=== PATIENT | female | born 1950 | race Caucasian/White ===

== ENCOUNTER 2020-01-04 12:54 | Outpatient (RCR) | payer OTHER, SELFPAY ==
[2020-01-04 13:01] VITALS: BMI 53.8
[2020-01-04 13:02] VITALS: BMI 53.8
== END 2020-04-03 23:59 | disposition home or self-care (01) ==
LOC: ANHDMC 12:54
PROVIDERS: PCP Internal Medicine; Visit Provider Internal Medicine
DX: E11.65 Type 2 diabetes mellitus with hyperglycemia (principal); Z71.3 Dietary counseling and surveillance; Z79.4 Long term (current) use of insulin
CPT/HCPCS: 97802

== ENCOUNTER → 2020-01-31 10:21 | Outpatient (CLI) | payer OTHER, SELFPAY ==
--- NOTE | ~2020-01-31 | XR_ITS ---
XR shoulder LT min 2V 01/31/2020 10:52 Indication: Left shoulder pain Procedure: 4 views left shoulder Comparison: No prior studies for comparison. Findings: There are mild degenerative changes of the glenohumeral and acromioclavicular joints. No ac salas fracture or traumatic malalignment. No significant soft tissue abnormality. Impression: 1: Mild polyarticular osteoarthritis. Reviewed, dictated and finalized at location B. E EDGER Impression: 1: Mild polyarticular osteoarthritis.
== END ==
PROVIDERS: PCP Internal Medicine; Visit Provider Nurse Practitioner Family
DX: M19.012 Primary osteoarthritis, left shoulder (principal)
CPT/HCPCS: 73030

== ENCOUNTER 2020-03-11 08:25 | Outpatient (CLI) | payer OTHER, SELFPAY ==
[2020-03-11 08:40] LABS: Hematocrit 44.7 % (37.0-47.0); Hemoglobin 14.2 g/dL (12.0-15.0); Mean Corpuscular HGB Conc 31.8 g/dl (32-36); Platelet Count Result 211 k/mm3 (150-375); Red Blood Count 5.08 M/mm3 (4.2-5.4); Red Cell Distribution Width 13.8 % (11.5-14.5); White Blood Count 6.6 K/mm3 (4.5-10.0)
[2020-03-11 12:07] LABS: Iron 72 ug/dL (37-170)
[2020-03-11 12:08] LABS: Blood Urea Nitrogen 14 mg/dL (7-17); Calcium 8.6 mg/dL (8.4-10.2); Carbon Dioxide 30 mmol/L (22-30); Chloride 106 mmol/L (98-107); Estimated Glomerular Filt Rate > 60; Glucose 123 mg/dL (65-105); Potassium 4.5 mmol/L (3.4-5.0); Sodium 140 mmol/L (137-145)
[2020-03-11 12:17] LABS: Percent Iron Saturation 24 % (20-50)
[2020-03-11 13:02] LABS: Vitamin B12 > 1000.0 pg/mL (239-931)
== END 2020-03-11 08:26 | disposition home or self-care (01) ==
LOC: ANHLAB 08:28
PROVIDERS: PCP Internal Medicine; Visit Provider Internal Medicine Hematology & Oncology
DX: D50.9 Iron deficiency anemia, unspecified (principal)
CPT/HCPCS: 36415; 80048; 82607; 82728; 83540; 83550; 85027

== ENCOUNTER 2020-05-01 09:46 | Outpatient (CLI) | payer OTHER, SELFPAY ==
--- NOTE | ~2020-05-01 | DEXA_ITS ---
Bone Density Report Name: Leslie Duong Age: 69 Sex: Female Ethnicity: White Date of : 1950 Indication: postmenopausal; height loss; inflammatory bowel disease; hysterectomy; Referring Provider: Calvin, Monika Malone Study: Bone densitometry was performed. Exam Date: May 01, 2020 Accession number: [id number] Bone Density: Region BMD T-score Z-score Classification AP Spine (L1-L4) 1.244 1.8 3.7 Normal Femoral Neck (Left) 0.853 0.0 1.7 Normal Total Hip (Left) 1.024 0.7 2.1 Normal Total Hip Bilateral Avg 1.086 1.2 2.5 Normal Femoral Neck (Right) 0.972 1.1 2.8 Normal Total Hip (Right) 1.146 1.7 3.0 Normal World Health Organization criteria for BMD impression classify patients as: Normal (T-score at or above -1.0), Osteopenia (T-score between -1.0 and -2.5), or Osteoporosis (T-score at or below -2.5). 10-year Fracture Risk: FRAX not reported because: All T-scores for Spine Total, Hip Total, Femoral Neck at or above -1.0 Clinical Information Provided by Patient: Has used the following medications: Calcium Has the following medical conditions: Inflammatory bowel diseases, Hysterectomy Patient maximum height was 69 Menopause Age: 42 No regular weight bearing exercise Does not regularly consume dairy products Onset of menses at age 15 Number of children 2 Impression: The patient has normal bone mass. Discussion: BONE DENSITY IS ABOVE THE MINIMUM DESIRABLE LEVEL AT ALL SKELETAL SITES TESTED. This patient?s bone mineral density is above the minimum desirable level (T-score -1.0 or better) at all sites measured. The patient should follow a healthful lifestyle (good nutrition with adequate calcium and vitamin D, and appropriate weight-bearing exercise). Follow-Up: Consider repeating this study in 5 years or sooner if there is some new clinical indication. Reported by: CHADD on 05/01/2020 10:18:00 AM. Reviewed, dictated and finalized at location AC[facility] GARIBAY
== END 2020-05-01 09:47 | disposition home or self-care (01) ==
LOC: ANHIMG 09:48
PROVIDERS: PCP Internal Medicine; Visit Provider Nurse Practitioner Obstetrics & Gynecology
DX: M85.80 Other specified disorders of bone density and structure, unspecified site (principal); Z78.0 Asymptomatic menopausal state
CPT/HCPCS: 77080

== ENCOUNTER 2020-05-08 09:04 | Outpatient (CLI) | payer OTHER, SELFPAY ==
[2020-05-08 09:29] LABS: Basophils Absolute Auto 0.1 K/mm3 (0.0-0.1); Basophils Percent Auto 0.9 % (0.2-1.2); Eosinophils Absolute Auto 0.3 K/mm3 (0-0.3); Hematocrit 44.3 % (37.0-47.0); Immature Granulocyte Absolute 0.01 K/mm3 (0.00-0.031); Immature Granulocyte Percent A 0.1 % (0-0.5); Lymphocytes Absolute Auto 1.81 K/mm3 (0.9-3.2); Lymphocytes Percent Auto 26.7 % (18.3-44.2); Mean Corpuscular HGB Conc 31.6 g/dl (32-36); Mean Corpuscular Hemoglobin 27.2 pg (26-34); Mean Corpuscular Volume 86.2 fl (80-100); Mean Platelet Volume 9.2 fl (7.4-10.4); Monocytes Absolute Auto 0.7 K/mm3 (0.1-0.6); Monocytes Percent Auto 9.9 % (2.6-8.5); Neutrophils Absolute Auto 3.9 K/mm3 (1.3-6.7); Neutrophils Percent Auto 57.4 % (45.5-73.1); Platelet Count Result 232 k/mm3 (150-375); Red Blood Count 5.14 M/mm3 (4.2-5.4); Red Cell Distribution Width 14.3 % (11.5-14.5); White Blood Count 6.8 K/mm3 (4.5-10.0)
[2020-05-08 09:40] LABS: Hemoglobin A1C 6.7 % (<5.7)
[2020-05-08 09:41] LABS: Alanine Aminotransferase 18 U/L (4-35); Albumin Level 4.2 g/dL (3.5-5.1); Alkaline Phosphatase 92 U/L (38-126); Aspartate Amino Transferase 24 U/L (14-36); Bilirubin,Total 0.5 mg/dL (0.2-1.3); Blood Urea Nitrogen 19 mg/dL (7-17); Calcium 9.1 mg/dL (8.4-10.2); Carbon Dioxide 32 mmol/L (22-30); Chloride 104 mmol/L (98-107); Cholesterol 148 mg/dL (0-200); Estimated Glomerular Filt Rate > 60; Glucose 153 mg/dL (65-105); HDL Direct 60 mg/dL; Potassium 4.7 mmol/L (3.4-5.0); Sodium 138 mmol/L (137-145); Triglycerides 101 mg/dL (<150)
[2020-05-08 09:52] LABS: LDL Cholesterol Direct 56 mg/dL
[2020-05-08 10:13] LABS: Creatinine Urine 133.8 mg/dL
[2020-05-08 10:16] LABS: MALB Creatinine Ratio 5.9 mg/g (0-30); Microalbumin Urine Random 7.9 mg/L (0-16.7)
[2020-05-08 10:29] LABS: Vitamin D 25 Hydroxy 35.1 ng/mL
== END 2020-05-08 09:05 | disposition home or self-care (01) ==
LOC: ANHLAB 09:06
PROVIDERS: PCP Internal Medicine; Visit Provider Internal Medicine
DX: E04.1 Nontoxic single thyroid nodule (principal); E11.9 Type 2 diabetes mellitus without complications; Z79.4 Long term (current) use of insulin; I10 Essential (primary) hypertension; E78.5 Hyperlipidemia, unspecified; Z79.899 Other long term (current) drug therapy
CPT/HCPCS: 36415; 80053; 80061; 82043; 82306; 83036; 84443; 85025

== ENCOUNTER 2020-10-01 09:06 | Outpatient (NON) | payer OTHER, SELFPAY ==
[2020-10-02 18:21] LABS: SARS-CoV-2 RNA PCR Negative
== END 2020-10-01 09:07 ==
PROVIDERS: PCP Internal Medicine; Visit Provider Internal Medicine
DX: Z20.828 Contact with and (suspected) exposure to other viral communicable diseases (principal); R68.89 Other general symptoms and signs
CPT/HCPCS: 87635; C9803; U0003

== ENCOUNTER 2021-03-06 08:56 | Outpatient (CLI) | payer OTHER, SELFPAY ==
[2021-03-06 11:48] LABS: Iron 86 ug/dL (37-170)
[2021-03-06 12:00] LABS: Percent Iron Saturation 28 % (20-50)
[2021-03-06 12:54] LABS: Folic Acid > 20.0 ng/mL (2.76->20)
== END 2021-03-06 08:57 | disposition home or self-care (01) ==
PROVIDERS: PCP Internal Medicine; Visit Provider Internal Medicine Hematology & Oncology
DX: E11.9 Type 2 diabetes mellitus without complications (principal)
CPT/HCPCS: 36415; 82607; 82728; 82746; 83540; 83550

== ENCOUNTER 2021-03-11 11:31 | Outpatient (CLI) | payer OTHER, SELFPAY ==
[2021-03-11 11:49] LABS: Hematocrit 45.4 % (37.0-47.0); Hemoglobin 14.4 g/dL (12.0-15.0); Mean Corpuscular HGB Conc 31.7 g/dl (32-36); Mean Corpuscular Hemoglobin 26.7 pg (26-34); Mean Corpuscular Volume 84.2 fl (80-100); Mean Platelet Volume 9.1 fl (7.4-10.4); Platelet Count Result 227 k/mm3 (150-375); Red Blood Count 5.39 M/mm3 (4.2-5.4); Red Cell Distribution Width 14.2 % (11.5-14.5); White Blood Count 7.5 K/mm3 (4.5-10.0)
== END 2021-03-11 11:32 | disposition home or self-care (01) ==
LOC: ANHLAB 11:33
PROVIDERS: PCP Internal Medicine; Visit Provider Internal Medicine Hematology & Oncology
DX: D50.9 Iron deficiency anemia, unspecified (principal)
CPT/HCPCS: 36415; 85027

== ENCOUNTER → 2021-04-07 09:45 | Outpatient (CLI) | payer OTHER, SELFPAY ==
--- NOTE | ~2021-04-07 | XR_ITS ---
EXAMINATION: XR finger 1st RT min 2V DATE: 04/07/2021 10:08 INDICATION: Left thumb pain TECHNIQUE: Dorsal palmar, lateral and 2 oblique views of the left first digit were obtained COMPARISON: None FINDINGS: Bone alignment is normal. No fracture. Polyarticular osteoarthritis, moderate to severe at the first carpometacarpal joint with mild cystic change at the base of the first metacarpal, moderate severity at the triscaphe and second carpal metacarpal joints and mild at the first metacarpophalangeal and in terphalangeal joints. IMPRESSION: 1. Polyarticular osteoarthritis at the left thumb and radial aspect of the carpus, moderate to severe at the first carpometacarpal joint. Reviewed, dictated and finalized at location A. IMPRESSION: 1. Polyarticular osteoarthritis at the left thumb and radial aspect of the carp us, moderate to severe at the first carpometacarpal joint.
== END ==
PROVIDERS: Visit Provider Nurse Practitioner Family
DX: M19.042 Primary osteoarthritis, left hand (principal)
CPT/HCPCS: 73140

== ENCOUNTER 2021-05-26 13:50 | Emergency (ER) | payer OTHER, SELFPAY ==
--- NOTE | 2021-05-26 13:57 | ED.NAVMDI ---
HPI - Nausea/Vomiting/Diarrhea General Chief complaint: Nausea/Vomiting/Diarrhea Stated complaint: Diarrhea,chills Source: patient Mode of arrival: ambulatory Limitations: no limitations History of Present Illness HPI Narrative: Patient is a 70 year old female who presents with multiple complaints. Patient states I feel a little off . Patient reports recent trip to [place] and reports loose stools x 6 day. Patient reports generalized malaise, diaphoresis, chills and runny nose. She states i feel off . Daughter reports her gait is a little off . Patient reports lightheaded and weakness. She denies fever, nausea or vomiting. Patient reports having Covid in 12/19, she reports she is unvaccinated as of this time. She denies taking over the counter medication for relief. Patient has a medical history that includes diabetes, gastric bypass and hypertension. MD elicited complaint: diarrhea Related Data Home Medications Medication Instructions Recorded Confirmed baclofen 10 mg tablet 10 mg PO BID tablet 11/07/19 05/26/21 duloxetine 60 mg capsule,delayed 120 mg PO DAILY cap 05/08/20 05/05/21 release metronidazole 0.75 % topical cream 1 applic TOPICAL BID 05/08/20 05/05/21 ondansetron HCl 8 mg tablet 8 mg PO Q8H PRN 05/08/20 05/05/21 buspirone 7.5 mg tablet 15 mg PO BID tablet 05/05/21 05/26/21 desipramine 25 mg tablet 25 mg PO QHS 05/05/21 05/05/21 cholecalciferol (vitamin D3) 50 50 mcg PO DAILY 05/09/21 mcg (2,000 unit) capsule Allergies Allergy/AdvReac Type Severity Reaction Status Date / Time hepatitis B virus vaccine Allergy Unknown Unknown Verified 05/05/21 09:46 Iodinated Contrast Media Allergy Unknown Anaphylactic Verified 05/05/21 09:46 Shock penicillin G Allergy Unknown Unknown Verified 05/05/21 09:46 Penicillins Allergy Unknown Unknown Verified 05/05/21 09:46 Nuztbqk-Ssm-Kvi Reductase Allergy Unknown Muscle Pain Verified 05/05/21 09:46 Inhibitor Chocolate Allergy Unknown ITCHING Uncoded 05/05/21 09:46 Contrast Media Allergy Unknown Anaphylactic Uncoded 05/05/21 09:46 Shock Review of Systems Review of Systems: Narrative: CONSTITUTIONAL: Reports chills and generalized malaise EYES: Denies visual changes, redness, or discharge. ENT: Reports rhinorrhea, denies congestion, sore throat, or otalgia. CARDIOVASCULAR: Denies chest pain, palpitations, or edema. RESPIRATORY: Denies cough or dyspnea. GASTROINTESTINAL: Reports loose stools GENITOURINARY: Denies dysuria or hematuria. SKIN: Denies rash or itching. MUSCULOSKELETAL: Denies back pain, joint pain, or myalgia. NEUROLOGIC: Reports dizziness and lightheadedness PSYCHIATRIC: Denies anxiety or depression. [facility] Past Medical History Medical History (Updated 05/26/21 @ 14:31 by DIMA Sprague) Anxiety Asthma Back pain Benign essential hypertension BMI 37.0-37.9, adult Constipation Depression Diabetes mellitus type 2, insulin dependent DJD (degenerative joint disease), multiple sites Encounter for general adult medical examination w/o abnormal findings Esophageal dysmotility Hearing loss Microcytosis Migraines On fdc drug therapy Surgical History Surgical History Hx of gastric bypass Status post laser cataract surgery of both eyes Family History Family History Father Hypertension Family history of hearing loss Family history of diabetes mellitus in first degree relative Family history of lung cancer, Onset Age: 56 Family history of coronary artery disease Patient's father is Family history of thyroid disease Diabetes mellitus Depression Family history of alcoholism Mother Hypertension Family history of osteoporosis Depression Asthma Family history of arthritis Family history of diabetes mellitus in first degree relative Family history of lung cancer Family history of atrial fibri
[2021-05-26 14:02] VITALS: BP 124/82; PULSE 88; RESP 20; TEMP 36.3; O2SAT 100
[2021-05-26 14:12] VITALS: BP 124/82; PULSE 88; RESP 20; TEMP 36.3; O2SAT 100
--- NOTE | 2021-05-26 14:29 | PC.NURSE ---
Mj Almanzar EBD SPECIAL EDUCATION TEACHER spoke with Dr Torres in the ER
--- NOTE | 2021-05-26 14:31 | PC.NURSE ---
Report to Tennille CALIXTO
--- NOTE | 2021-05-26 14:39 | PC.NURSE ---
Appropriate transfer paperwork signed
== END 2021-05-26 14:41 | disposition short-term general hospital (02) ==
PROVIDERS: Emergency Provider Nurse Practitioner; PCP Internal Medicine
DX: R42 Dizziness and giddiness (principal); R53.1 Weakness; Z20.822 Contact with and (suspected) exposure to COVID-19; Z98.84 Bariatric surgery status; J45.909 Unspecified asthma, uncomplicated; I10 Essential (primary) hypertension; E11.9 Type 2 diabetes mellitus without complications; F41.9 Anxiety disorder, unspecified; F32.9 Major depressive disorder, single episode, unspecified
CPT/HCPCS: 87426; 99213; C9803; G0463

== ENCOUNTER 2021-05-26 14:59 | Emergency (ER) | payer OTHER, SELFPAY ==
--- NOTE | ~2021-05-26 | CT_ITS ---
EXAMINATION: CT abdomen pelvis wo con EXAM DATE: 05/26/2021 17:49 INDICATION: Diarrhea, right upper quadrant pain . History gastric bypass, cholecystectomy. Contrast m edia allergy. TECHNIQUE: Spiral CT of the abdomen and pelvis was performed without contrast. Axial, coronal and s agittal images of the abdomen and pelvis were reviewed. The dose-length product (DLP) for this exami nation was 1309.13 mGy-cm. The exposure was tailored according to patient size (auto mA exposure con trol), and iterative reconstruction (ASIR) was used as additional dose reduction technique. Compariso n is made to prior examination from 05/18/2017. FINDINGS: Surgical changes from gastric bypass, with small to moderate-sized sliding hernia. There are cholecystectomy clips. There is no nephrolithiasis or hydronephrosis. The uterus is not identi fied and has likely been surgically resected. The bladder is undistended at time of imaging. There is no retroperitoneal or pelvic lymphadenopathy. The appendix is normal. The stomach and small bowel are unremarkable. There is expected amount of c olonic stool. No free intraperitoneal gas. The heart is normal in size. There are no pericardial or pleural effusions. The lung bases are unremarkable. There is mild lumbar levoscoliosis. There ar e no osteoblastic or osteolytic lesions identified. There is no significant interval change. IMPRESSION: 1. No acute intra-abdominal findings. 2. Gastric bypass, small to moderate hiatal hernia. 3. Hysterectomy, cholecystectomy. Reviewed, dictated and finalized at location A.
[2021-05-26 15:02] VITALS: BP 124/90; PULSE 90; RESP 14; TEMP 36.4; O2SAT 100
--- NOTE | 2021-05-26 15:07 | ECG_ITS ---
Measurements Intervals [place] Rate: 83 P: 39 WY: 154 QRS: 28 QRSD: 86 T: 24 QT: 362 QTc: 426 Interpretive Statements SINUS RHYTHM NORMAL ECG Electronically Signed On 05-26-2021 15:21:37 CDT by Rio Mitchell D.O.
[2021-05-26 15:19] LABS: Basophils Absolute Auto 0.1 K/mm3 (0.0-0.1); Basophils Percent Auto 0.7 % (0.2-1.2); Eosinophils Absolute Auto 0.1 K/mm3 (0-0.3); Eosinophils Percent Auto 1.4 % (0-4.4); Hematocrit 50.9 % (37.0-47.0); Hemoglobin 16.3 g/dL (12.0-15.0); Immature Granulocyte Absolute 0.02 K/mm3 (0.00-0.031); Immature Granulocyte Percent A 0.2 % (0-0.5); Lymphocytes Absolute Auto 2.15 K/mm3 (0.9-3.2); Lymphocytes Percent Auto 25.2 % (18.3-44.2); Mean Corpuscular Hemoglobin 26.7 pg (26-34); Mean Corpuscular Volume 83.4 fl (80-100); Monocytes Absolute Auto 0.7 K/mm3 (0.1-0.6); Monocytes Percent Auto 8.1 % (2.6-8.5); Neutrophils Absolute Auto 5.5 K/mm3 (1.3-6.7); Neutrophils Percent Auto 64.4 % (45.5-73.1); Platelet Count Result 245 k/mm3 (150-375); Red Cell Distribution Width 14.1 % (11.5-14.5); White Blood Count 8.5 K/mm3 (4.5-10.0)
[2021-05-26 15:28] LABS: Alanine Aminotransferase 20 U/L (4-35); Alkaline Phosphatase 106 U/L (38-126); Anion Gap 10 mmol/L (8-16); Aspartate Amino Transferase 31 U/L (14-36); Bilirubin,Total 0.9 mg/dL (0.2-1.3); Blood Urea Nitrogen 16 mg/dL (7-17); Calcium 10.7 mg/dL (8.4-10.2); Carbon Dioxide 28 mmol/L (22-30); Chloride 104 mmol/L (98-107); Estimated CRCL calculation 78 ml/min; Estimated Glomerular Filt Rate > 60; Glucose 153 mg/dL (65-105); Lipase 117 U/L (23-300); Sodium 142 mmol/L (137-145)
[2021-05-26 17:07] LABS: Add Urine Microscopic? YES; Appearance Urine Clear (Clear); Bacteria Urine Trace /hpf; Bilirubin Urine 1+ (Negative); Blood Urine Negative (Negative); Color Urine Amber (Yellow); Glucose Urine UA Negative (Negative); Ketones Urine 2+ mg/dL (Negative); Leukocyte Esterase Ur Negative LEU/UL (Negative); Mucus Urine Few /lpf; Nitrate Urine Negative (Negative); Protein Urine 2+ mg/dL (Negative); RBC Urine 0-2 /hpf (0-2); Squamous Epithelial Cell Urine Rare /hpf (Few); WBC Urine 0-3 /hpf
[2021-05-26 17:09] LABS: Specific Grav Ur 1.032 (1.001-1.035)
[2021-05-26 17:25] VITALS: PULSE 83; RESP 20; O2SAT 100
--- NOTE | 2021-05-26 17:25 | ED.NAVMDI ---
HPI - Nausea/Vomiting/Diarrhea General Chief complaint: Nausea/Vomiting/Diarrhea Stated complaint: Diarrhea since Wednesday Time Seen by Provider: 05/26/21 16:47 Source: patient Mode of arrival: ambulatory Limitations: no limitations History of Present Illness HPI Narrative: This is a 70-year-old female that presents to the emergency department for diarrhea ongoing over the last 6 days. Associated with some abdominal pain, but patient does report that she chronically has abdominal pain. Also reports nausea. Was seen at urgent care and sent here for further evaluation. Denies fever, hematochezia, or dysuria. Related Data Home Medications Medication Instructions Recorded Confirmed baclofen 10 mg tablet 10 mg PO BID tablet 11/07/19 05/26/21 duloxetine 60 mg capsule,delayed 120 mg PO DAILY cap 05/08/20 05/26/21 release metronidazole 0.75 % topical cream 1 applic TOPICAL BID 05/08/20 05/26/21 ondansetron HCl 8 mg tablet 8 mg PO Q8H PRN 05/08/20 05/26/21 buspirone 7.5 mg tablet 15 mg PO BID tablet 05/05/21 05/26/21 desipramine 25 mg tablet 25 mg PO QHS 05/05/21 05/26/21 cholecalciferol (vitamin D3) 50 50 mcg PO DAILY 05/09/21 05/26/21 mcg (2,000 unit) capsule Allergies Allergy/AdvReac Type Severity Reaction Status Date / Time hepatitis B virus vaccine Allergy Unknown Unknown Verified 05/05/21 09:46 Iodinated Contrast Media Allergy Unknown Anaphylactic Verified 05/05/21 09:46 Shock penicillin G Allergy Unknown Unknown Verified 05/05/21 09:46 Penicillins Allergy Unknown Unknown Verified 05/05/21 09:46 Stjnqlo-Eip-Elk Reductase Allergy Unknown Muscle Pain Verified 05/05/21 09:46 Inhibitor Chocolate Allergy Unknown ITCHING Uncoded 05/05/21 09:46 Contrast Media Allergy Unknown Anaphylactic Uncoded 05/05/21 09:46 Shock Review of Systems Review of Systems: Narrative: CONSTITUTIONAL: Denies fever GASTROINTESTINAL: Reports abdominal pain, nausea, and diarrhea. Denies vomiting GENITOURINARY: Denies dysuria All systems reviewed & are unremarkable except as noted in HPI and below PMFSH Past Medical History Medical History (Updated 05/26/21 @ 19:14 by Dahlia Zapien PA-C) Anxiety Asthma Back pain Benign essential hypertension BMI 37.0-37.9, adult Constipation Depression Diabetes mellitus type 2, insulin dependent DJD (degenerative joint disease), multiple sites Encounter for general adult medical examination w/o abnormal findings Esophageal dysmotility Hearing loss Microcytosis Migraines On nursing home drug therapy Surgical History Surgical History Hx of gastric bypass Status post laser cataract surgery of both eyes Family History Family History Father Hypertension Family history of hearing loss Family history of diabetes mellitus in first degree relative Family history of lung cancer, Onset Age: 56 Family history of coronary artery disease Patient's father is Family history of thyroid disease Diabetes mellitus Depression Family history of alcoholism Mother Hypertension Family history of osteoporosis Depression Asthma Family history of arthritis Family history of diabetes mellitus in first degree relative Family history of lung cancer Family history of atrial fibrillation Cerebrovascular accident Family history of coronary artery disease Patient's mother is Family history of thyroid disease Diabetes mellitus Grandparent Carcinoma of colon, Onset Age: 63 Family history of malignant neoplasm of breast, Onset Age: 56 Family history of congestive heart failure Diabetes mellitus Sibling Family history of malignant melanoma Family history of malignant neoplasm of breast in first degree relative, Onset Age: 57 Family history of kidney disease Family history of malignant neoplasm of thyroid Diabetes mellitus Franco
[2021-05-26] MEDS: SODIUM CHLORIDE 0.9% IV 1,000 ML 999 ML IV CONT (17:49)
[2021-05-26] MEDS: ONDANSETRON INJ 4 MG/2 ML VIAL IV PUSH (17:50)
[2021-05-26 17:51] VITALS: BP 140/79; PULSE 75; RESP 15; O2SAT 100
[2021-05-26 18:52] VITALS: BP 128/84; PULSE 75; RESP 19; O2SAT 100
--- NOTE | 2021-05-26 19:26 | PC.NURSE ---
EDMD to bedside to update pt on poc and all questions and concerns addressed. Pt noted to be alert and oriented x4 and in no obvious distress and denies all pain and discomfort at this time. Pt alert and oriented x4 and to be dc home with daughter who is coming to pick her up. Pt has no questions or concerns at this time.
[2021-05-26 19:27] VITALS: BP 143/74; PULSE 84; RESP 14; TEMP 37.1; O2SAT 100
[2021-05-26 19:29] VITALS: BP 143/74; PULSE 84; RESP 14; TEMP 37.1; O2SAT 100
== END 2021-05-26 19:30 | disposition home or self-care (01) ==
PROVIDERS: Emergency Medicine; Emergency Provider Emergency Medicine; PCP Internal Medicine
DX: R19.7 Diarrhea, unspecified (principal); R11.2 Nausea with vomiting, unspecified; E11.9 Type 2 diabetes mellitus without complications; I10 Essential (primary) hypertension; F41.9 Anxiety disorder, unspecified; F32.9 Major depressive disorder, single episode, unspecified
CPT/HCPCS: 36415; 74176; 80053; 81001; 83690; 85025; 87426; 93005; 96361; 96374; 99284; C9803; J2405; J7030

== ENCOUNTER 2021-05-27 11:51 | Observation (INO) | payer OTHER, SELFPAY ==
[2021-05-27] VITALS (11 sets, daily range): BP systolic 123–162; BP diastolic 61–92; PULSE 69–105; RESP 14–29; TEMP 36.1–36.3; O2SAT 93–100
--- NOTE | 2021-05-27 12:21 | ED.NAVMDI ---
HPI - Nausea/Vomiting/Diarrhea General Chief complaint: Nausea/Vomiting/Diarrhea Stated complaint: vomiting Time Seen by Provider: 05/27/21 11:54 Source: patient, RN notes reviewed and old records reviewed Mode of arrival: ambulatory Limitations: no limitations History of Present Illness HPI Narrative: This is 70 year old female with history of GERD, gastric bypass, DM on insulin pump who presents for evaluation of nausea. Patient was seen in ED yesterday for nausea and diarrhea for 6 days. She had an unremarkable CT abdomen and pelvis yesterday. Patient was able to tolerate PO so she was discharged home. Patient has come back to ER today because she continues to have nausea and dry heaves. She denies any abdominal pain, fever, chills. She also denies chest pain, sob and headache. She takes Zofran at home. She had a gastric bypass performed 20 years ago in [place]. She has been following with bariatric surgery and GI at [place] over the past few years. She had a Fundiplication performed at [place] 3 years ago , and she has continued to have issues with GERD and hiatal hernia. She takes zofran 8 mg every 8 hours as needed. she also takes protonix twice a day. Related Data Home Medications Medication Instructions Recorded Confirmed baclofen 10 mg tablet 10 mg PO BID tablet 11/07/19 05/26/21 duloxetine 60 mg capsule,delayed 120 mg PO DAILY cap 05/08/20 05/26/21 release metronidazole 0.75 % topical cream 1 applic TOPICAL BID 05/08/20 05/26/21 ondansetron HCl 8 mg tablet 8 mg PO Q8H PRN 05/08/20 05/26/21 buspirone 7.5 mg tablet 15 mg PO BID tablet 05/05/21 05/26/21 desipramine 25 mg tablet 25 mg PO QHS 05/05/21 05/26/21 cholecalciferol (vitamin D3) 50 50 mcg PO DAILY 05/09/21 05/26/21 mcg (2,000 unit) capsule Allergies Allergy/AdvReac Type Severity Reaction Status Date / Time gadobenic acid Allergy Unknown Anaphylactic Verified 05/27/21 20:01 [From contrast - MRI] Shock hepatitis B virus vaccine Allergy Unknown Unknown Verified 05/27/21 20:01 Iodinated Contrast Media Allergy Unknown Anaphylactic Verified 05/27/21 20:01 Shock iohexol Allergy Unknown Anaphylactic Verified 05/27/21 20:01 [From contrast - CT, X-RAY] Shock penicillin G Allergy Unknown Unknown Verified 05/27/21 20:01 Penicillins Allergy Unknown Unknown Verified 05/27/21 20:01 Uwwreck-Fra-Mtr Reductase Allergy Unknown Muscle Pain Verified 05/27/21 20:01 Inhibitor Chocolate Allergy Unknown ITCHING Uncoded 05/05/21 09:46 Review of Systems Review of Systems: All systems reviewed & are unremarkable except as noted in HPI and below PMFSH Past Medical History Medical History (Updated 05/27/21 @ 20:15 by Pearl Torres MD) Anxiety Asthma Back pain Benign essential hypertension BMI 37.0-37.9, adult Constipation Depression Diabetes mellitus type 2, insulin dependent DJD (degenerative joint disease), multiple sites Encounter for general adult medical examination w/o abnormal findings Esophageal dysmotility Hearing loss Microcytosis Migraines On laborer marine terminal drug therapy Surgical History Surgical History Hx of gastric bypass Status post laser cataract surgery of both eyes Family History Family History Father Hypertension Family history of hearing loss Family history of diabetes mellitus in first degree relative Family history of lung cancer, Onset Age: 56 Family history of coronary artery disease Patient's father is Family history of thyroid disease Diabetes mellitus Depression Family history of alcoholism Mother Hypertension Family history of osteoporosis Depression Asthma Family history of arthritis Family history of diabetes mellitus in first degree relative Family history of lung cancer Family history of atrial fibrillation Cerebrovascular accident Family history of coron
[2021-05-27] MEDS: METOCLOPRAMIDE HCL INJ 10 MG/2 ML VIAL IV PUSH (12:22)
[2021-05-27 12:26] LABS: Basophils Absolute Auto 0.1 K/mm3 (0.0-0.1); Basophils Percent Auto 0.7 % (0.2-1.2); Eosinophils Absolute Auto 0.1 K/mm3 (0-0.3); Hematocrit 46.7 % (37.0-47.0); Hemoglobin 15.3 g/dL (12.0-15.0); Immature Granulocyte Absolute 0.02 K/mm3 (0.00-0.031); Immature Granulocyte Percent A 0.2 % (0-0.5); Lymphocytes Absolute Auto 2.07 K/mm3 (0.9-3.2); Lymphocytes Percent Auto 23.8 % (18.3-44.2); Mean Corpuscular HGB Conc 32.8 g/dl (32-36); Mean Corpuscular Hemoglobin 27.1 pg (26-34); Mean Corpuscular Volume 82.7 fl (80-100); Mean Platelet Volume 9.5 fl (7.4-10.4); Monocytes Absolute Auto 0.7 K/mm3 (0.1-0.6); Monocytes Percent Auto 7.5 % (2.6-8.5); Neutrophils Absolute Auto 5.8 K/mm3 (1.3-6.7); Neutrophils Percent Auto 66.8 % (45.5-73.1); Platelet Count Result 238 k/mm3 (150-375); Red Blood Count 5.65 M/mm3 (4.2-5.4); Red Cell Distribution Width 13.8 % (11.5-14.5); White Blood Count 8.7 K/mm3 (4.5-10.0)
[2021-05-27 12:32] LABS: Alanine Aminotransferase 18 U/L (4-35); Albumin Level 4.6 g/dL (3.5-5.1); Alkaline Phosphatase 99 U/L (38-126); Anion Gap 11 mmol/L (8-16); Aspartate Amino Transferase 30 U/L (14-36); Bilirubin,Total 0.8 mg/dL (0.2-1.3); Blood Urea Nitrogen 15 mg/dL (7-17); Calcium 9.8 mg/dL (8.4-10.2); Carbon Dioxide 24 mmol/L (22-30); Chloride 106 mmol/L (98-107); Estimated CRCL calculation 90 ml/min; Estimated Glomerular Filt Rate > 60; Glucose 184 mg/dL (65-105); Lipase 119 U/L (23-300); Potassium 3.5 mmol/L (3.4-5.0); Sodium 141 mmol/L (137-145)
[2021-05-27] MEDS: LACTATED RINGERS 1,000 ML 999 ML IV CONT (14:13)
[2021-05-27 14:33] LABS: Add Urine Microscopic? YES; Appearance Urine Clear (Clear); Bilirubin Urine Negative (Negative); Blood Urine Negative (Negative); Color Urine Amber (Yellow); Glucose Urine UA Negative (Negative); Ketones Urine 2+ mg/dL (Negative); Leukocyte Esterase Ur Negative LEU/UL (Negative); Mucus Urine Rare /lpf; Nitrate Urine Negative (Negative); Protein Urine 2+ mg/dL (Negative); RBC Urine 0-2 /hpf (0-2); Squamous Epithelial Cell Urine Rare /hpf (Few); WBC Urine 0-3 /hpf
[2021-05-27] MEDS: PANTOPRAZOLE SODIUM IV 40 MG VIAL IV PUSH ×2 (14:46→23:28)
[2021-05-27] MEDS: ONDANSETRON INJ 4 MG/2 ML VIAL IV PUSH (14:46)
--- NOTE | 2021-05-27 19:35 | ADMGEN ---
This patient, Leslie Duong, was admitted to Medical Room 345-. Patient/family oriented to hospital policies and general routines including ID bracelet, bed and alarms, visiting hours, pain management, procedures, bathroom and other care routines, personal items, smoking policy, room service/diet, and visiting hours. Information on how to activate the Rapid Response Team has been discussed. Patient/Family are encouraged to report perceived risks to care and to ask questions if they do not understand what they are told or what they should do.
[2021-05-28] MEDS: SODIUM CHLORIDE 0.9% IV 1,000 ML 125 ML IV CONT ×2 (04:25→15:31)
[2021-05-28 06:03] VITALS: BP 139/71; PULSE 72; RESP 16; TEMP 36.6; O2SAT 100
[2021-05-28 06:05] LABS: Basophils Absolute Auto 0.1 K/mm3 (0.0-0.1); Basophils Percent Auto 0.9 % (0.2-1.2); Eosinophils Absolute Auto 0.2 K/mm3 (0-0.3); Hematocrit 42.4 % (37.0-47.0); Hemoglobin 14.1 g/dL (12.0-15.0); Immature Granulocyte Absolute 0.01 K/mm3 (0.00-0.031); Immature Granulocyte Percent A 0.1 % (0-0.5); Lymphocytes Absolute Auto 1.96 K/mm3 (0.9-3.2); Lymphocytes Percent Auto 28.1 % (18.3-44.2); Mean Corpuscular HGB Conc 33.3 g/dl (32-36); Mean Corpuscular Volume 81.2 fl (80-100); Mean Platelet Volume 9.3 fl (7.4-10.4); Monocytes Absolute Auto 0.8 K/mm3 (0.1-0.6); Monocytes Percent Auto 11.2 % (2.6-8.5); Neutrophils Percent Auto 56.7 % (45.5-73.1); Platelet Count Result 177 k/mm3 (150-375); Red Blood Count 5.22 M/mm3 (4.2-5.4); Red Cell Distribution Width 13.6 % (11.5-14.5)
[2021-05-28 06:15] LABS: Alanine Aminotransferase 15 U/L (4-35); Albumin Level 4.1 g/dL (3.5-5.1); Alkaline Phosphatase 77 U/L (38-126); Anion Gap 8 mmol/L (8-16); Aspartate Amino Transferase 27 U/L (14-36); Bilirubin,Total 0.8 mg/dL (0.2-1.3); Blood Urea Nitrogen 14 mg/dL (7-17); Calcium 9.3 mg/dL (8.4-10.2); Carbon Dioxide 25 mmol/L (22-30); Chloride 107 mmol/L (98-107); Estimated CRCL calculation 78 ml/min; Estimated Glomerular Filt Rate > 60; Glucose 123 mg/dL (65-105); Potassium 3.9 mmol/L (3.4-5.0); Sodium 140 mmol/L (137-145)
--- NOTE | 2021-05-28 06:26 | PM.IMHP ---
H&P: HPI History of Present Illness Date/Time: 05/28/21 06:26 Chief Complaint: nausea and vomiting Narrative: pleasant 70-year-old female with past medical history of prior gastric bypass procedure, complicated partial Ajay fundoplication 2017, chronic GERD, esophageal dysmotility and insulin-dependent diabetes mellitus who presented to the ER from home with persistent nausea and vomiting. the patient was seen in the ER on the due to nausea and diarrhea for 6 days. She had unremarkable CT of the abdomen pelvis at that time. She had tolerated p.o. challenge and had been discharged home. The patient reports that she will at times have frequent loose stools due to steatorrhea due to complications of her esophageal dysmotility and release of her actual pancreatic enzymes. She has been taking her Pancrease but still is having steatorrhea. She is having 4-5 loose stools a day but denies any true diarrhea. She has not been having any lower abdominal pain. She does have chronic GERD and reflux symptoms but denies any chest pain or shortness of breath. After she was discharged home she began having hot flashes and cold sweats. She continued to have nausea and dry heaves. She was only able to keep 1 protein shake a day down for the last week. She had tried some Pedialyte on the morning of the but had continued nausea and dry heaves. She denies any significant abdominal pain at the time of my evaluation but when I palpate her abdomen she did have some nonspecific periumbilical tenderness. She has not noticed any abdominal swelling. She denies any recent ill contacts. She was evaluated at urgent care several days ago and they performed a COVID swab as the patient was having some rhinorrhea. Her test came back negative. She has been taking Zofran at home without relief in her symptoms. She reported that she has chronic abdominal issues but had actually been able to be weaned down off of some of her meds over the last year. She used to take Protonix 3 times a but day but has been weaned down to twice a day. Date also weaned down some of the doses of her Levsin, Pancrease, and IB guard. She has been following with her product marketing engineer in gastric surgeon at [place] yearly. She has not had an EGD in approximately 4 years. The patient has not had COVID-19 vaccines. She reports that she is 1 of a very few number people who have had anaphylactic reaction to the hepatitis-B vaccine so she is unwilling to have any further vaccines unless absolutely needed. Review of Systems Review of Systems: Narrative: 12 systems were reviewed with pertinent positives and negatives per HPI. Except as documented in the HPI, all other systems were reviewed and are negative. [facility] Past Medical History Medical History (Updated 05/28/21 @ 09:36 by Lovely Graves DO) Anxiety Asthma Back pain Basal cell carcinoma Benign essential hypertension Depression Diabetes mellitus type 2, insulin dependent insulin pump with Novolog 5 units/hour. hgb A1C 7.0 04/2021. DJD (degenerative joint disease), multiple sites Esophageal dysmotility Hearing loss Hiatal hernia with GERD Microcytosis Migraines Obesity (BMI 30-39.9) Surgical History Surgical History (Updated 05/28/21 @ 09:26 by Lovely Graves DO) H/O hysterectomy for benign disease History of Ajay fundoplication (~2016) partial Ajay fundoplication performed at [facility] complicated by stomach being adherent to the pericardium and duodenum being adherent to the pleural lining resulting and pneumothorax and clinical decompensation History of spinal surgery History of toe surgery Hx of gastric bypass (~2000) Status post cholecystectomy Status post laser cataract surgery of both eyes Family History Family History Father Hypertension Family history of hearing loss Family history of diabetes mellitus in first degree relative Family history of l
[2021-05-28 07:54] VITALS: BMI 34.8
[2021-05-28] MEDS: PANTOPRAZOLE SODIUM IV 40 MG VIAL IV PUSH ×2 (08:54→20:06)
[2021-05-28] MEDS: LOSARTAN POTASSIUM 25 MG TABLET PO (08:54)
[2021-05-28 09:05] LABS: Glucose Point of Care 129 mg/dl (65-105)
[2021-05-28 10:55] VITALS: BMI 34.8
[2021-05-28 10:57] VITALS: O2SAT 96
--- NOTE | 2021-05-28 11:29 | WPDGICN ---
Assessment and Plan Assessment and plan (1) Intractable nausea and vomiting: Code(s): R11.2 - Nausea with vomiting, unspecified Status: Acute Assessment and Plan: Patient has persistent nausea vomiting. This may be related to dehydration. Cannot exclude its relation to control of her diabetes. Patient does have extensive GI history including prior gastric bypass. Hiatal hernia repair with Ajay fundoplication. She has ongoing symptoms. Currently followed actively at [facility]. Choice of medications suspect that she may have underlying irritable bowel syndrome as well. Plan initially is for supportive care with IV fluid rehydration. We will continue her home medications well as Reglan period and gradually advanced diet. Follow up at [facility] for follow-up EGD at some point is encouraged after discharge. (2) Insulin dependent diabetes mellitus: Status: Acute (3) Hx of gastric bypass: Onset Date: ~2000 Code(s): Z98.84 - Bariatric surgery status Status: Acute (4) History of Ajay fundoplication: Onset Date: ~2016 Code(s): Z98.890 - Other specified postprocedural states Status: Inactive GI Consult Note Consult date/time: 05/28/21 11:29 HPI: Leslie Duong is a 70 year old female Admitted the hospital with protracted nausea and vomiting. Patient has extensive medical history. Patient previously followed at [facility] in [place]. She has a history of gastric bypass in 2000. Patient reports having had a hiatal hernia requiring surgical repair in 2017. At that time apparently portions of her stomach and duodenum were attached to the area around the heart. A Ajay fundoplication was performed. Patient reports that she has persistent GE reflux disease despite this. She has intermittent nausea vomiting. Because of this she has been followed frequently at [facility]. She has been treated both for reflux as well as for irritable bowel syndrome. Recent CT scan is reported to be unremarkable. Patient's past history is significant for diabetes mellitus for which she has an insulin pump. Medications taken for her stomach include Creon, Desimpramine, Zoloft, pantoprazole, Bentyl, IBD guard, vitamins Review of Systems Review of Systems: All systems reviewed & are unremarkable except as noted in HPI and below [facility] Past Medical History Medical History (Updated 05/28/21 @ 09:36 by Lovely Graves DO) Anxiety Asthma Back pain Basal cell carcinoma Benign essential hypertension Depression Diabetes mellitus type 2, insulin dependent insulin pump with Novolog 5 units/hour. hgb A1C 7.0 04/2021. DJD (degenerative joint disease), multiple sites Esophageal dysmotility Hearing loss Hiatal hernia with GERD Microcytosis Migraines Obesity (BMI 30-39.9) Surgical History Surgical History (Updated 05/28/21 @ 11:33 by Lupillo David MD) H/O hysterectomy for benign disease History of Ajya fundoplication (~2016) partial Ajay fundoplication performed at [facility] complicated by stomach being adherent to the pericardium and duodenum being adherent to the pleural lining resulting and pneumothorax and clinical decompensation History of spinal surgery History of toe surgery Hx of gastric bypass (~2000) Status post cholecystectomy Status post laser cataract surgery of both eyes Family History Family History Father Hypertension Family history of hearing loss Family history of diabetes mellitus in first degree relative Family history of lung cancer, Onset Age: 56 Family history of coronary artery disease Patient's father is Family history of thyroid disease Diabetes mellitus Depression Family history of alcoholism Mother Hypertension Family history of osteoporosis Depression Asthma Family history of arthritis Family history of diabetes mellitus in
[2021-05-28 12:01] LABS: Glucose Point of Care 117 mg/dl (65-105)
[2021-05-28 14:00] VITALS: BP 145/69; PULSE 81; RESP 12; TEMP 35.6; O2SAT 100
--- NOTE | 2021-05-28 14:15 | PHAR ---
HOME MED VERIFIED IBGARD 90MG CAPSULE 1 DAILY
[2021-05-28] MEDS: busPIRone HCL 5 MG TABLET 15 MG PO ×2 (14:19→16:41)
[2021-05-28] MEDS: DULoxetine HCL 60 MG CAPSULE.DR PO (14:20)
--- NOTE | 2021-05-28 14:21 | PHAR ---
HOME MED VERIFIED CREON [id number] CAPSULES 1 BID
[2021-05-28] MEDS: METOCLOPRAMIDE HCL INJ 10 MG/2 ML VIAL IV PUSH (15:28)
--- NOTE | 2021-05-28 16:37 | PM.IMPN ---
Progress Note: A&P Assessment and Plan (1) Intractable nausea and vomiting: Code(s): R11.2 - Nausea with vomiting, unspecified Status: Acute Assessment and Plan: Case has been discussed by previous provider with health informatics specialist Dr. David. At this time would like to avoid EGD at this facility given her complex GI history and close follow-up at [place] ( her health informatics specialist is Dr. Knight). At this time, her symptoms have improved significantly. Continue antiemetics continue clear liquid diet. Advance as tolerated Continue gentle IV fluids until tolerating PO intake. appreciate GI consultation continuing her home GI medications including Lyrica, [facility], and Creon which have been brought from home. (2) Hiatal hernia with GERD: Code(s): K21.9 - Gastro-esophageal reflux disease without esophagitis; K44.9 - Diaphragmatic hernia without obstruction or gangrene Status: Acute Assessment and Plan: Continue IV Protonix b.i.d. (3) Insulin dependent diabetes mellitus: Status: Acute Assessment and Plan: last A1c was 7.0. She has an insulin pump and is knowledgeable with management. blood sugars are well controlled continue use of insulin pump continue Accu-Cheks, low dose sliding scale insulin, and hypoglycemic protocol (4) Benign essential hypertension: Code(s): I10 - Essential (primary) hypertension Status: Acute Assessment and Plan: blood pressure reviewed and has been generally well controlled. Last BP was 145/69. Additional Plan She had a rust colored stool today. Will order occult blood testing for further evaluation. Subjective Date/time seen: 05/28/21 16:37 Interval history: Date of service: 05/28/2021 Leslie Duong is a 70-year-old female with a history of gastric bypass procedure, complicated partial Ajay fundoplication, chronic GERD, esophageal dysmotility, and insulin-dependent diabetes mellitus who is seen in follow-up for nausea and vomiting. She is feeling better today. She is still having nausea but has not had any more episodes of emesis today. She is tolerating very minimal amounts of clear liquids. She has had a quarter of a serum missed, about 2/3 of an ensure, and a couple sips of broth. She endorses mid abdominal pain which she rates as 3/10 and describes as an aching sensation. She had a rust colored stool today. She reports that her stools are typically pale in color. She denies shortness breath, cough, chest pain or palpitations. No dizziness or lightheadedness. Denies urinary symptoms. No other concerns at this time. Review of Systems Review of Systems: All systems reviewed & are unremarkable except as noted in HPI and below Exam Narrative: Exam Narrative: Ms. Duong is a well-nourished, well-appearing 70-year-old female who is lying supine in bed. She appears comfortable and is in NARD. Neuro: awake, alert and oriented x4, speech clear, no focal neuro deficits noted HEENMT: normocephalic, atraumatic, EOMI, sclerae anicteric, moist oral mucosa Neck: supple, no lymphadenopathy Respiratory: clear to auscultation bilaterally, nonlabored breathing Cardio: regular rate, regular rhythm with S1-S2 Abdomen: nondistended, normoactive bowel sounds, soft, nontender to palpation, no rigidity or guarding Extremities: no edema, erythema, or tenderness to palpation, DP pulses 2+ bilaterally Skin: no rashes or lesions, warm and dry Psych: appropriate mood and affect, judgment and insight intact Objective Data Vital Signs Vital Signs: Vital Signs - 24 hr 05/27/21 17:38 05/27/21 18:17 05/27/21 18:24 Temperature Pulse Rate 78 86 88 Respiratory Rate 15 18 19 Blood Pressure 141/72 H 150/92 H 150/92 H Pulse Oximetry 100 100 100 05/27/21 20:35 05/28/21 06:03 05/28/21 10:57 Temperature 96.9 F L 97.8 F Pulse Rate 69 72 Respiratory Rate 18 16 Blood Pressure 133/65
[2021-05-28] MEDS: BACLOFEN 10 MG TABLET PO (16:41)
[2021-05-28] MEDS: HYOSCYAMINE SULFATE 0.125 MG TABLET PO (16:41)
[2021-05-28] MEDS: PREGABALIN (*CRX) 75 MG CAPSULE 150 MG PO (16:41)
[2021-05-28 16:48] LABS: Glucose Point of Care 106 mg/dl (65-105)
[2021-05-28] MEDS: ONDANSETRON INJ 4 MG/2 ML VIAL IV PUSH (20:05)
[2021-05-28] MEDS: DESIPRAMINE HCL 25 MG TABLET PO (20:06)
[2021-05-28 20:53] LABS: IFOB Positive Control Positive; Immunochemical Fecal Occult Bl Negative (N)
[2021-05-28 21:20] VITALS: BP 134/71; PULSE 73; RESP 16; TEMP 36.4; O2SAT 98
[2021-05-28] MEDS: ACETAMINOPHEN 325 MG TABLET 650 MG PO (22:39)
[2021-05-29] MEDS: SODIUM CHLORIDE 0.9% IV 1,000 ML 85 ML IV CONT (01:50)
[2021-05-29 06:23] LABS: Hematocrit 43.6 % (37.0-47.0); Hemoglobin 14.4 g/dL (12.0-15.0); Mean Corpuscular Hemoglobin 26.9 pg (26-34); Mean Corpuscular Volume 81.3 fl (80-100); Mean Platelet Volume 9.2 fl (7.4-10.4); Platelet Count Result 190 k/mm3 (150-375); Red Blood Count 5.36 M/mm3 (4.2-5.4); Red Cell Distribution Width 13.6 % (11.5-14.5); White Blood Count 5.7 K/mm3 (4.5-10.0)
[2021-05-29 06:28] VITALS: BP 115/79; PULSE 69; RESP 16; TEMP 36.9; O2SAT 98
[2021-05-29 06:29] LABS: Anion Gap 6 mmol/L (8-16); Blood Urea Nitrogen 7 mg/dL (7-17); Carbon Dioxide 27 mmol/L (22-30); Chloride 110 mmol/L (98-107); Estimated CRCL calculation 90 ml/min; Estimated Glomerular Filt Rate > 60; Glucose 132 mg/dL (65-105); Potassium 3.6 mmol/L (3.4-5.0); Sodium 143 mmol/L (137-145)
--- NOTE | 2021-05-29 07:46 | PM.IMPN ---
Progress Note: A&P Assessment and Plan (1) Intractable nausea and vomiting: Code(s): R11.2 - Nausea with vomiting, unspecified Status: Acute Assessment and Plan: Case has been discussed by previous provider with pairer odds Dr. David. At this time would like to avoid EGD at this facility given her complex GI history and close follow-up at [place] ( her pairer odds is Dr. Knight). At this time, her symptoms have improved significantly. Continue antiemetics continue clear liquid diet. Advance as tolerated Continue gentle IV fluids until tolerating PO intake. appreciate GI consultation continuing her home GI medications including Lyrica, [employer], and Creon which have been brought from home. (2) Hiatal hernia with GERD: Code(s): K21.9 - Gastro-esophageal reflux disease without esophagitis; K44.9 - Diaphragmatic hernia without obstruction or gangrene Status: Acute Assessment and Plan: Continue IV Protonix b.i.d. (3) Insulin dependent diabetes mellitus: Status: Acute Assessment and Plan: last A1c was 7.0. She has an insulin pump and is knowledgeable with management. blood sugars are well controlled continue use of insulin pump continue Accu-Cheks, low dose sliding scale insulin, and hypoglycemic protocol (4) Benign essential hypertension: Code(s): I10 - Essential (primary) hypertension Status: Acute Assessment and Plan: blood pressure reviewed and has been generally well controlled. Last BP was 145/69. Additional Plan She had a rust colored stool today. Will order occult blood testing for further evaluation. Subjective Date/time seen: 05/29/21 07:46 Interval history: Date of service: 05/28/2021 Review of Systems Review of Systems: All systems reviewed & are unremarkable except as noted in HPI and below Constitutional: Constitutional: Denies excessive sweating, Denies headache(s), Denies increased appetite, Denies snoring and Denies weight gain Eyes: Eyes: Denies exophthalmos, Denies diplopia, Denies floaters and Denies loss of peripheral vision ENT: Denies facial pain, Denies headache(s), Denies odynophagia and Denies tinnitus Respiratory: Respiratory: Denies snoring Gastrointestinal: Gastrointestinal: Denies odynophagia Neurologic: Denies headache(s) Endocrine: Endocrine: Denies excessive sweating Exam Narrative: Exam Narrative: Ms. Duong is a well-nourished, well-appearing 70-year-old female who is lying supine in bed. She appears comfortable and is in NARD. Neuro: awake, alert and oriented x4, speech clear, no focal neuro deficits noted HEENMT: normocephalic, atraumatic, EOMI, sclerae anicteric, moist oral mucosa Neck: supple, no lymphadenopathy Respiratory: clear to auscultation bilaterally, nonlabored breathing Cardio: regular rate, regular rhythm with S1-S2 Abdomen: nondistended, normoactive bowel sounds, soft, nontender to palpation, no rigidity or guarding Extremities: no edema, erythema, or tenderness to palpation, DP pulses 2+ bilaterally Skin: no rashes or lesions, warm and dry Psych: appropriate mood and affect, judgment and insight intact Objective Data Vital Signs Vital Signs: Vital Signs - 24 hr 05/28/21 10:57 05/28/21 14:00 05/28/21 21:20 Temperature 35.6 C L 36.4 C L Pulse Rate 81 73 Respiratory Rate 12 16 Blood Pressure 145/69 H 134/71 Pulse Oximetry 96 100 98 05/29/21 06:28 Temperature 36.9 C Pulse Rate 69 Respiratory Rate 16 Blood Pressure 115/79 Pulse Oximetry 98 Intake/Output Intake/Output: Intake & Output 05/26/21 05/27/21 05/28/21 05/29/21 23:59 23:59 23:59 23:59 Intake Total 1000 1000 1000 Output Total 200 600 400 Balance 800 400 600 Meds/Results Medications: Active Medications Generic Name Dose Route Start Last Admin Trade Name Freq PRN Reason Stop Dose Admin Acetaminophen 650 mg 05/28/21 2
[2021-05-29 08:16] LABS: Glucose Point of Care 132 mg/dl (65-105)
[2021-05-29] MEDS: HYOSCYAMINE SULFATE 0.125 MG TABLET PO ×2 (08:21→13:13)
[2021-05-29] MEDS: PANTOPRAZOLE SODIUM IV 40 MG VIAL IV PUSH (08:21)
[2021-05-29] MEDS: LOSARTAN POTASSIUM 25 MG TABLET PO (08:22)
[2021-05-29] MEDS: DULoxetine HCL 60 MG CAPSULE.DR PO (08:22)
[2021-05-29] MEDS: busPIRone HCL 5 MG TABLET 15 MG PO (08:22)
[2021-05-29] MEDS: BACLOFEN 10 MG TABLET PO (08:22)
[2021-05-29] MEDS: CHOLECALCIFEROL 1,000 UNITS TABLET 5000 UNITS PO (08:23)
[2021-05-29] MEDS: PREGABALIN (*CRX) 75 MG CAPSULE 150 MG PO (08:24)
--- NOTE | 2021-05-29 10:45 | WPDGIPROGNO ---
Progress Note: A&P Assessment and Plan (1) Insulin dependent diabetes mellitus: Status: Acute Assessment and Plan: Patient with diabetes. This potentially could have contributed to her nausea vomiting. She has improved with rehydration. Will advance to her diabetic diet at this time. (2) Intractable nausea and vomiting: Code(s): R11.2 - Nausea with vomiting, unspecified Status: Acute Assessment and Plan: Nausea vomiting appears resolved. Likely related to dehydration. IV rehydration appears to have helped more than anything else. Will discontinue Reglan at this time. Advance to diabetic diet. Frequent small meals suggested. Patient advised to elevate head of bed at night. hopefully patient can be discharged today. (3) Hiatal hernia with GERD: Code(s): K21.9 - Gastro-esophageal reflux disease without esophagitis; K44.9 - Diaphragmatic hernia without obstruction or gangrene Status: Acute Assessment and Plan: Recurrent hiatal hernia is evident on CT scan. Patient previously had fundoplication repair of this. Likely has recurred. Conservative management suggest at this time should patient should elevate head of bed at night. (4) Hx of gastric bypass: Onset Date: ~2000 Code(s): Z98.84 - Bariatric surgery status Status: Acute Assessment and Plan: Patient followed at [facility] because of prior surgeries including gastric bypass and fundoplication. Frequent small meals suggested. Diabetic diet (5) History of Ajay fundoplication: Onset Date: ~2016 Code(s): Z98.890 - Other specified postprocedural states Status: Acute Subjective Date/time seen: 05/29/21 10:45 Patient feeling much better today. Sitting up in a chair. Tolerating liquid diet with no difficulties. IV fluid seems to have helped dramatically. Patient currently denies any nausea. Has no pain. Review of Systems Review of Systems: All systems reviewed & are unremarkable except as noted in HPI and below Exam Narrative: Exam Narrative: Physical exam reveals patient be alert. Vital signs stable. HEENT exam unremarkable. Patient anicteric. Lungs are clear to auscultation and percussion. Heart is without murmur or extra sounds. Abdomen bowel sounds present soft nontender with no organomegaly. Objective Data Vital Signs Vital Signs: Vital Signs - 24 hr 05/28/21 10:57 05/28/21 14:00 05/28/21 21:20 Temperature 96.1 F L 97.5 F L Pulse Rate 81 73 Respiratory Rate 12 16 Blood Pressure 145/69 H 134/71 Pulse Oximetry 96 100 98 05/29/21 06:28 Temperature 98.5 F Pulse Rate 69 Respiratory Rate 16 Blood Pressure 115/79 Pulse Oximetry 98 Intake/Output Intake/Output: Intake & Output 05/26/21 05/27/21 05/28/21 05/29/21 23:59 23:59 23:59 23:59 Intake Total 1000 1000 1477 Output Total 200 600 400 Balance 299 146 6962 Meds/Results Medications: Active Medications Generic Name Dose Route Start Last Admin Trade Name Freq PRN Reason Stop Dose Admin Acetaminophen 650 mg 05/28/21 22:29 05/28/21 22:39 Acetaminophen 325 Mg Tablet PO 650 mg Q6H PRN Administration Mild Pain (1-3) or Fever Baclofen 10 mg 05/28/21 09:00 05/29/21 08:22 Baclofen 10 Mg Tablet PO 10 mg BID ELIAS Administration Buspirone HCl 15 mg 05/28/21 09:00 05/29/21 08:22 Buspirone Hcl 5 Mg Tablet PO 15 mg BID ELIAS Administration Cyclobenzaprine HCl 10 mg 05/28/21 06:33 Cyclobenzaprine Hcl 10 Mg Tablet PO TID PRN Muscle Spasm Desipramine HCl 25 mg 05/28/21 21:00 05/28/21 20:06 Desipramine Hcl 25 Mg Tablet PO 25 mg HS ELIAS Administration Dextrose 12.5 gm 05/28/21 06:39 Dextrose 50% 25 Gm/50 Ml Syringe IV PUSH PRN PRN Hypoglycemia Protocol Duloxetine HCl 60 mg 05/28/21 09:00 05/29/21 08:22 Duloxetine Hcl 60 Mg Capsule.Dr PO 60 mg DAILY ELIAS Administration Glucagon 1 mg 05/28/21 06:
--- NOTE | 2021-05-29 14:15 | PM.DS ---
DS: Admitting Diagnosis Admitting Diagnosis Admitting Diagnosis: Intractable Nausea and Vomiting DS: Discharge Diagnosis Discharge Diagnosis (1) Intractable nausea and vomiting: Code(s): R11.2 - Nausea with vomiting, unspecified Status: Acute Assessment and Plan: Case has been discussed by previous provider with montessori preschool teacher Dr. David. At this time GI would like to avoid EGD at this facility given her complex GI history and close follow-up at [place] ( her montessori preschool teacher is Dr. Knight). At this time, her symptoms have improved significantly. Continue antiemetics continue Advance diet as tolerated Continue D/C IV fluids as she is tolerating PO intake. appreciate GI consultation continuing her home GI medications including Lyrica, Dogi, and Creon which have been brought from home. Nausea vomiting appears resolved. Likely related to dehydration. IV rehydration appears to have helped more than anything else. Discontinue Reglan Did well with Advancement to diabetic diet. Patient advised to elevate head of bed at night and to eat Frequent small meals patient can be discharged today if tolerate regular lunch meal per GI. (2) Hiatal hernia with GERD: Code(s): K21.9 - Gastro-esophageal reflux disease without esophagitis; K44.9 - Diaphragmatic hernia without obstruction or gangrene Status: Acute Assessment and Plan: Continue IV Protonix b.i.d. Recurrent hiatal hernia is evident on CT scan. Patient previously had fundoplication repair of this. Likely has recurred. Conservative management suggest at this time. Frequent small meals suggested. Patient advised to elevate head of bed at night patient can be discharged today if tolerate regular lunch meal per GI. (3) Insulin dependent diabetes mellitus: Status: Acute Assessment and Plan: last A1c was 7.0. She has an insulin pump and is knowledgeable with management. blood sugars are well controlled continue use of insulin pump continue Accu-Cheks, low dose sliding scale insulin, and hypoglycemic protocol Patient with diabetes. This potentially could have contributed to her nausea vomiting. Improved with rehydration. Follow diabetic diet Glucose 132 today (4) Benign essential hypertension: Code(s): I10 - Essential (primary) hypertension Status: Acute Assessment and Plan: blood pressure reviewed and has been generally well controlled. Last BP was 145/69. (5) Hx of gastric bypass: Onset Date: ~2000 Code(s): Z98.84 - Bariatric surgery status Status: Acute Assessment and Plan: Patient followed at [facility] because of prior surgeries including gastric bypass and fundoplication. Frequent small meals suggested. Diabetic diet patient can be discharged today if tolerate regular lunch meal per GI. (6) History of Ajay fundoplication: Onset Date: ~2016 Code(s): Z98.890 - Other specified postprocedural states Status: Acute Assessment and Plan: diabetes could have contributed to her nausea vomiting. improved with rehydration. follow diabetic diet . Patient followed at [facility] because of prior surgeries including gastric bypass and fundoplication. Frequent small meals suggested. patient can be discharged today if tolerate regular lunch meal per GI. DS: Summary Hospital Course Hospital Course: Leslie Duong is a 70-year-old female with a history of gastric bypass procedure, complicated partial Ajay fundoplication, chronic GERD, esophageal dysmotility, and insulin-dependent diabetes mellitus who is seen in follow-up for nausea and vomiting. She is feeling better today. She is still having nausea but has not had any more episodes of emesis. She was tolerating very minimal amounts of clear liquids. She had a quarter of a serum missed, about 2/3 of an ensure, and a couple sips of broth. She endorses mid abdominal
== END 2021-05-29 14:48 | disposition home or self-care (01) ==
LOC: ANHED 12:33 → ANH3MED 17:42
PROVIDERS: Physician Assistant; Admitting Provider Internal Medicine; Emergency Provider General Practice; PCP Internal Medicine; Visit Provider Nurse Practitioner
DX: R11.2 Nausea with vomiting, unspecified (principal); K21.9 Gastro-esophageal reflux disease without esophagitis; K44.9 Diaphragmatic hernia without obstruction or gangrene; R19.7 Diarrhea, unspecified; Z98.84 Bariatric surgery status; E11.9 Type 2 diabetes mellitus without complications; I10 Essential (primary) hypertension; F41.8 Other specified anxiety disorders; J45.909 Unspecified asthma, uncomplicated; K59.00 Constipation, unspecified; M19.91 Primary osteoarthritis, unspecified site; Z96.41 Presence of insulin pump (external) (internal); Z79.4 Long term (current) use of insulin
CPT/HCPCS: 36415; 51701; 80048; 80053; 81001; 82274; 82948; 83690; 85025; 85027; 96361; 96374; 96375; 96376; 99285; A9270; C9113; G0378; J2405; J2765; J7030; J7120

== ENCOUNTER → 2021-06-24 14:23 | Outpatient (CLI) | payer OTHER, SELFPAY ==
--- NOTE | ~2021-06-24 | MM_ITS ---
EXAMINATION: MM screening oliver BI w iris HISTORY: Screening mammogram TECHNIQUE: Craniocaudal and mediolateral oblique 3-D tomosynthesis images were obtained and synthetic 2-D images were generated. CAD analysis was submitted and interpreted. COMPARISON: 08/09/2019 diagnostic left mammogram and complete left breast ultrasound examination BREAST PARENCHYMAL COMPOSITION: The breasts are heterogeneously dense, which may obscure small masses . FINDINGS: Scattered bilateral benign calcifications. There is no evidence of suspicious mass, calcifi cation, or architectural distortion to suggest malignancy in either breast. There has been no suspici ous interval change. IMPRESSION: 1. No mammographic evidence of malignancy. 2. Recommend routine screening mammography in one year. BI-RADS Category 2: Benign finding(s). Reviewed, dictated and finalized at location A.
== END ==
PROVIDERS: PCP Internal Medicine; Visit Provider Obstetrics & Gynecology
DX: Z12.31 Encounter for screening mammogram for malignant neoplasm of breast (principal)
CPT/HCPCS: 77063; 77067

== ENCOUNTER → 2021-11-13 10:25 | Outpatient (CLI) | payer OTHER, SELFPAY ==
--- NOTE | ~2021-11-13 | XR_ITS ---
EXAMINATION: XR shoulder RT min 2V INDICATION: Right shoulder pain TECHNIQUE: Four views of the right shoulder are submitted. COMPARISON: None FINDINGS: Normal alignment. No fracture. There is mild osteoarthritis of the glenohumeral and acromio clavicular joints. Soft tissues are unremarkable. IMPRESSION: 1. Osteoarthritis without acute abnormality. Reviewed, dictated and finalized at location A. [employer]
== END ==
PROVIDERS: PCP Internal Medicine; Visit Provider Internal Medicine
DX: M19.011 Primary osteoarthritis, right shoulder (principal)
CPT/HCPCS: 73030

== ENCOUNTER 2022-04-10 10:06 | Outpatient (CLI) | payer OTHER, SELFPAY ==
[2022-04-10 10:51] LABS: Basophils Absolute Auto 0.1 K/mm3 (0.0-0.1); Basophils Percent Auto 0.8 % (0.2-1.2); Eosinophils Absolute Auto 0.3 K/mm3 (0-0.3); Eosinophils Percent Auto 4.1 % (0-4.4); Hematocrit 45.3 % (37.0-47.0); Hemoglobin 14.3 g/dL (12.0-15.0); Immature Granulocyte Absolute 0.01 K/mm3 (0.00-0.031); Immature Granulocyte Percent A 0.2 % (0-0.5); Lymphocytes Absolute Auto 1.68 K/mm3 (0.9-3.2); Lymphocytes Percent Auto 25.3 % (18.3-44.2); Mean Corpuscular HGB Conc 31.6 g/dl (32-36); Mean Corpuscular Volume 85.5 fl (80-100); Mean Platelet Volume 9.2 fl (7.4-10.4); Monocytes Absolute Auto 0.5 K/mm3 (0.1-0.6); Monocytes Percent Auto 7.5 % (2.6-8.5); Neutrophils Absolute Auto 4.1 K/mm3 (1.3-6.7); Neutrophils Percent Auto 62.1 % (45.5-73.1); Platelet Count Result 236 k/mm3 (150-375); Red Cell Distribution Width 14.5 % (11.5-14.5); White Blood Count 6.6 K/mm3 (4.5-10.0)
[2022-04-10 11:27] LABS: Iron 88 ug/dL (37-170)
[2022-04-10 11:36] LABS: Percent Iron Saturation 27 % (20-50)
[2022-04-10 12:07] LABS: Folic Acid > 20.0 ng/mL (2.76->20); Vitamin B12 > 1000.0 pg/mL (239-931)
== END 2022-04-10 10:07 | disposition home or self-care (01) ==
PROVIDERS: PCP Internal Medicine; Visit Provider Internal Medicine Hematology & Oncology
DX: D50.9 Iron deficiency anemia, unspecified (principal)
CPT/HCPCS: 36415; 82607; 82728; 82746; 83540; 83550; 85025